=== PATIENT | female | born 1975 | race Two or more races ===

== ENCOUNTER 2020-02-07 02:15 | Emergency (ER) | payer OTHER ==
[~2020-02-07] VITALS: Ht 165.1 cm; Wt 94.4 kg
--- NOTE | 2020-02-07 02:30 | NUR ---
THIS IS A 44Y F THAT COMES IN TONIGHT AFTER BEING WOKEN UP BY INTENSE ABD/ BACK PAIN AROUND 2300. PT STS SHE HAS HX OF GERD AND ULCERS. PT STS SHE TOOK OTC GERD MEIDCATION AND TUMS. PT STS SHE IS NOT IN PAIN AT THIS TIME AFTER EATING SOME MINT BEFORE ARRIVING.
--- NOTE | 2020-02-07 02:31 | NUR ---
PA AT BEDSIDE TO ASSESS PT
[2020-02-07 02:35] VITALS: BP 131/65
[2020-02-07 02:48] LABS: BASOPHILS # (AUTO) 0.03 x10^3/uL (0-0.1); BASOPHILS % (AUTO) 0 % (0-1); EOSINOPHILS # (AUTO) 0.02 x10^3/uL (0-0.4); EOSINOPHILS % (AUTO) 0 % (1-7); LYMPHOCYTES # (AUTO) 0.99 x10^3/uL (1-3.4); LYMPHOCYTES % (AUTO) 11 % (22-44); MD NO; MEAN CORPUSCULAR HEMOGLOBIN 26.1 pg (27.0-34.8); MEAN CORPUSCULAR HGB CONC 32.4 g/dL (32.4-35.8); MEAN CORPUSCULAR VOLUME 80.5 fL (80-100); MEAN PLATELET VOLUME 7.9 fL (7.4-10.4); MONOCYTES # (AUTO) 0.23 x10^3/uL (0.2-0.8); MONOCYTES % (AUTO) 3 % (2-9); NEUTROPHILS % (AUTO) 86 % (42-75); PLATELET COUNT 292 x10^3/uL (130-400); RED CELL DISTRIBUTION WIDTH 15.3 % (9.6-15.2)
[2020-02-07 02:59] LABS: ALANINE AMINOTRANSFERASE 174 U/L (12-78); ALBUMIN 3.5 g/dL (3.4-5.0); ANION GAP 8 mmol/L (5-15); CALCIUM 8.7 mg/dL (8.5-10.1); CHLORIDE 106 mmol/L (98-107); CREATININE 0.88 mg/dL (0.55-1.02)
--- NOTE | 2020-02-07 03:00 | NUR ---
PT EDUCATED ON NEED FOR URINE SAMPLE. PT STS SHE JUST WENT AND NEEDS A LITTLE BIT
[2020-02-07 03:04] LABS: ALKALINE PHOSPHATASE 149 U/L (45-117); BILIRUBIN,TOTAL 0.5 mg/dL (0.2-1.0); TOTAL PROTEIN 7.4 g/dL (6.4-8.2); TROPONIN I 0.016 ng/mL (0.000-0.045)
--- NOTE | 2020-02-07 03:58 | NUR ---
PT STS SHE CAN NOW PRODUCE URINE. PT EDUCATED ON CLEAN CATCH METHOD
--- NOTE | 2020-02-07 04:14 | NUR ---
MD AT BEDSIDE TO DISCUSS POC
[2020-02-07 04:24] LABS: MICROSCOPIC NOT IND
[2020-02-07 04:28] LABS: CULTURE INDICATED? NO
--- NOTE | 2020-02-07 04:49 | NUR ---
Patient/Caregiver given discharge instructions and they have confirmed that they understand the instructions. Patient ambulatory with steady gait.
== END 2020-02-07 04:50 | disposition home or self-care (01) ==
LOC: ED 03:08
DX: K80.20 Calculus of gallbladder without cholecystitis without obstruction (principal); R10.13 Epigastric pain; K21.9 Gastro-esophageal reflux disease without esophagitis; R00.0 Tachycardia, unspecified
CPT/HCPCS: 36415; 71045; 76700; 80053; 81003; 83690; 84484; 84703; 85025; 93005; 99285